=== PATIENT | female | born 1995 | race African-American/Black ===

== ENCOUNTER 2025-08-23 11:52 | Emergency (ER) | payer SELFPAY ==
[~2025-08-23] VITALS: Ht 165.1 cm; Wt 60.0 kg
[2025-08-23 12:03] VITALS: O2SAT 100
[2025-08-23 14:36] VITALS: BP 114/79; PULSE 76; RESP 18; TEMP 37.2; O2SAT 99
== END 2025-08-23 14:38 | disposition home or self-care (01) ==
LOC: ER 12:39
DX: R60.0 Localized edema (principal)
CPT/HCPCS: 99283; 73130; 29125; A6449